=== PATIENT | female | born 1925 | race Caucasian/White ===

== ENCOUNTER 2016-05-11 13:10 | Inpatient (IN) ==
[2016-05-11] MEDS ORDERED: methylPREDNISolone 125 MG/2 ML VIAL IVP ONE (13:23)
[2016-05-11] MEDS ORDERED: Ipratropium/Albuterol Neb 3 ML IH ONE (13:23)
--- NOTE | 2016-05-11 14:10 | Emergency Department Note ---
Disposition Clinical Impression: Acute exacerbation of chronic obstructive airways disease, Elevated troponin I level Disposition: Admitted As Inpatient Condition: Fair Time of Disposition: 15:39 SOB HPI - General Chief Complaint: ED Shortness of Breath/Dyspnea Stated Complaint: productive cough Time Seen by Provider: 05/11/16 13:22 Source: patient, EMS Limitations: no limitations Nursing Notes Reviewed: Yes Vital Signs Reviewed: Yes - History of Present Illness 89-year-old female history of asthma, history of lymphoma, presents with shortness of breath and wheezing for the last week. Patient states she has been coughing productive cough. Concern for having pneumonia. Patient reports subjective fevers, denies chest pain, abdominal pain nausea vomiting diarrhea or constipation. Denies urinary symptoms. Patient states that she has had worsening cough for last few days, she has taken her inhaler at home without much improvement, she was seen by physician and was sent here today by the urgent care who was concerned she may have worsening bronchitis Pt Subjective Complaint: shortness of breath Onset (ago): day(s) (5) Context: recent illness Severity: mild Improves with: nothing Worsens with: nothing Known history of: COPD, asthma Associated symptoms: Reports: fever, cough, wheezing, sputum production. Denies : denies other symptoms Treatment prior to arrival: none, bronchodilator Cough present: Yes Cough Description: Voluntary Cough Frequency: Intermittent Sputum production: Yes Sputum Amount: Scant Sputum Color: Clear, White - Related Data Home Medications Medication Instructions Recorded Confirmed Albuterol Sulfate [Proair HFA] 1 puff IH Q4HR PRN 02/11/15 04/23/16 Ascorbic Acid [Vitamin C] 500 mg PO DAILY 02/11/15 04/23/16 Aspirin Enteric Coated [Aspirin EC] 81 mg PO DAILY 02/11/15 04/23/16 Atorvastatin [Lipitor] 10 mg PO HS 02/11/15 04/23/16 Carvedilol [Coreg] 6.25 mg PO BIDWM 02/11/15 04/23/16 Cholecalciferol (Vitamin D3) 5,000 unit PO BID 02/11/15 04/23/16 [Vitamin D] Ferrous Sulfate 325 mg PO DAILY 02/11/15 04/23/16 Fluticasone/Salmeterol [Advair 1 puff IH BID 02/11/15 04/23/16 100-50 Diskus] Furosemide [Lasix] 20 mg PO BID 10/19/15 12/29/16 Levothyroxine [Synthroid] 75 mcg PO 0630 02/11/15 04/23/16 Montelukast [Singulair] 10 mg PO DAILY 02/11/15 04/23/16 Multivit-Min/FA/Lycopen/Lutein 1 tab PO DAILY 02/11/15 04/23/16 [Centrum Silver Tablet] Omeprazole [PriLOSEC] 40 mg PO DAILY 09/30/15 04/23/16 Albuterol Neb [Proventil Neb] 2.5 mg IH QID PRN 12/26/15 04/23/16 Calcium Carbonate [Tums] 1,000 mg PO Q4HR 12/26/15 04/23/16 Lisinopril 2.5 mg PO DAILY 12/26/15 04/23/16 Polyethylene Glycol 3350 [MiraLAX] 17 gm PO DAILY PRN 12/26/15 04/23/16 Vitamin B Complex [B Complex] 1 tab PO DAILY 12/26/15 04/23/16 Previous Rx's Medication Instructions Recorded Cyanocobalamin (Vitamin B-12) 2,500 mcg PO DAILY #90 tablet 12/31/15 [Vitamin B12] Allergies Allergy/AdvReac Type Severity Reaction Status Date / Time levofloxacin [From Levaquin] Allergy Unknown Itching Verified 11/17/15 15:51 Sulfa (Sulfonamide Allergy Nausea Verified 11/17/15 15:51 Antibiotics) Review of Systems: A 14 point ROS was obtained and was negative except as per below or as documented in the HPI. Constitutional: Denies: fever, chills, weakness, weight change Eyes: Denies: eye pain, eye discharge, vision change ENT: Denies: ear pain, throat pain, hearing loss, epistaxis, congestion, Cardiovascular: Denies: chest pain, palpitations, dyspnea on exertion, edema, syncope Respiratory: cough, dyspnea, wheezes Denies:, hemoptysis, stridor Gastrointestinal: Denies: abdominal pain, nausea, vomiting. diarrhea, constipation, hematemesis, hematochezia Genitourinary: Denies: urgency, dysuria, frequency, hematuria Musculoskeletal: Denies: back pain, neck pain, arthralgia, myalgia Integumentary: Denies: rash, abrasion, lesions Neurological: Denies: headache, weakness, numbness, paresthesias, confusion, abnormal gait Psychiatric: Denies: anxiety, depression, suicidal thoughts, homicidal thoughts , Endocrine: Denies: fatigue Hematological/Lymphatic: Denies: easy bleeding, easy bruising Allergic/Immunologic: Denies: facial swelling, urticaria All systems ED: reviewed and negative except as stated. Past Medical History - Past Medical History Medical history: Reports: asthma Surgical history: Reports: breast surgery, cataract Psychiatric history: Reports: no psych history - Social History Smoking Status: Never smoker Smokeless Tobacco Status: No Alcohol use: Reports: none Drug use: Reports: none Physical Exam General: Thin cachectic female appears stated age, Head: NCAT, no lesions Eyes: sclera anicteric, conjunctiva normal, PERRLA bilaterally, EOMI Bilaterally Ears: normal inspection, external ear wnl Nose: nasal septum nondeviated, sinuses nontender Throat: good dentition, mucous membranes moist Neck: no lymphadenopathy, trachea midline no deviation, no JVD Resp: Inspiratory/ expiratory wheezes. CV: RRR, normal S1 and S2, no m/g/r, Pulses +2 Rad, +2 DP/PT Abdomen: Soft, NTND, no hepatosplenomegaly, no hernias, Negative Rovsing's sign , Negative Keyes's sign Back: normal inspection, no tenderness to palpation, Negative CVA tenderness bilaterally Neuro: A&O3, CN II-XII grossly intact bilaterally, no motor or sensory deficits bilaterally, gait normal, GCS 15 [id number] Ext: normal inspection, symmetric Active and Passive ROM UE and LE bilaterally , no pedal edema bilaterally Psych: normal mood, normal affect Skin: No rashes, skin warm, dry, intact - General Limitations: no limitations General appearance: alert, in no apparent distress Course Course Narrative: A 89-year-old female with cough congestion, consistent with possible COPD exacerbation, will try do nebs, sign Medrol reassess. - Reevaluation(s) Reevaluation #1: After reassessment, patient some improvement after 2 nebs, her troponin was elevated though I was likely ischemia due to demand ischemia, but given her age and comorbidities one significant for chest pain rule out, given 325 aspirin, admitted to medicine service Vital Signs Temperature 98.9 F 05/11/16 13:16 Pulse Rate 58 05/11/16 13:16 Respiratory Rate 18 05/11/16 13:16 Blood Pressure 160/64 05/11/16 13:16 O2 Sat by Pulse Oximetry 97 05/11/16 13:16 Temperature 98.9 F 05/11/16 13:16 Pulse Rate 70 05/11/16 15:20 Respiratory Rate 18 05/11/16 15:20 Blood Pressure 119/61 05/11/16 15:20 O2 Sat by Pulse Oximetry 97 05/11/16 15:20 Oxygen Delivery Oxygen Delivery Room Air Shortness of Breath/Dyspnea - MDM Narrative Medical decision making narrative: A 89-year-old female admitted for chest pain rule out, acute COPD exacerbation, CHF exacerbation and elevated troponin. Currently in stable condition Alysha berry. - Differential Diagnosis Likely: acute exacerbation of chronic obstructive airways disease, congestive heart failure, pneumonia - Medical Records Medical records reviewed: Yes I reviewed the patient's medical records. - Lab Data Lab results reviewed: Yes I reviewed the patient's lab results. Result diagrams: 05/11/16 14:22 05/11/16 14:22 Lab Results 05/11/16 05/11/16 05/11/16 Range/Units 14:22 14:22 14:22 WBC 5.1 (4.3-11.1) K/mcL RBC 3.40 L (3.82-4.97) M/mcL Hgb 10.8 L (11.5-15.4) g/dL Hct 34.2 L (35.3-44.9) % MCV 100.6 H (83.0-100.0) fL MCH 31.8 (28.0-33.3) pg MCHC 31.6 (31.6-35.5) g/dL RDW 14.4 (11.5-14.5) % Plt Count 135 L (140-400) K/mcL MPV 10.6 (9.4-12.4) fL Immature Gran % 0.6 (0-4) % Seg Neutrophils % 60.4 % Lymphocytes % 22.9 % Monocytes % 13.7 % Eosinophils % 1.8 % Basophils % 0.6 % Neutrophils # 3.1 (1.6-8.9) K/mcL Lymphocytes # 1.2 (0.6-4.6) K/mcL Monocytes # 0.7 (0.0-1.3) K/mcL Eosinophils # 0.1 (0.0-0.6) K/mcL Basophils # 0.0 (0.0-0.2) K/mcL Immature Plt Fraction 5.1 (1.1-6.1) % Sodium 138 (136-145) mEq/L Potassium 4.1 (3.5-4.5) mEq/L Chloride 102 (98-109) mEq/L Carbon Dioxide 26 (19-29) mEq/L BUN 20 (7-20) mg/dL Creatinine 1.03 (0.57-1.11) mg/dL Est GFR ( Amer) > 60 (> 60) Est GFR (Non-Af Amer) 50 L (> 60) BUN/Creatinine Ratio 19 (6-26) Glucose 94 (70-99) mg/dL Calculated Osmolality 288 (280-300) Lactic Acid 1.1 (0.5-2.2) mmol/L Calcium 8.9 (8.6-10.8) mg/dL Troponin I (0-0.03) ng/mL B-Natriuretic Peptide (0-100) pg/mL 05/11/16 05/11/16 Range/Units 14:22 14:22 WBC (4.3-11.1) K/mcL RBC (3.82-4.97) M/mcL Hgb (11.5-15.4) g/dL Hct (35.3-44.9) % MCV (83.0-100.0) fL MCH (28.0-33.3) pg MCHC (31.6-35.5) g/dL RDW (11.5-14.5) % Plt Count (140-400) K/mcL MPV (9.4-12.4) fL Immature Gran % (0-4) % Seg Neutrophils % % Lymphocytes % % Monocytes % % Eosinophils % % Basophils % % Neutrophils # (1.6-8.9) K/mcL Lymphocytes # (0.6-4.6) K/mcL Monocytes # (0.0-1.3) K/mcL Eosinophils # (0.0-0.6) K/mcL Basophils # (0.0-0.2) K/mcL Immature Plt Fraction (1.1-6.1) % Sodium (136-145) mEq/L Potassium (3.5-4.5) mEq/L Chloride (98-109) mEq/L Carbon Dioxide (19-29) mEq/L BUN (7-20) mg/dL Creatinine (0.57-1.11) mg/dL Est GFR ( Amer) (> 60) Est GFR (Non-Af Amer) (> 60) BUN/Creatinine Ratio (6-26) Glucose (70-99) mg/dL Calculated Osmolality (280-300) Lactic Acid (0.5-2.2) mmol/L Calcium (8.6-10.8) mg/dL Troponin I 0.04 H* (0-0.03) ng/mL B-Natriuretic Peptide 748 H (0-100) pg/mL - Radiology Data Radiology results reviewed: Yes I reviewed the patient's radiology results. Chest X-Ray 05/11/16 13:24 IMPRESSION: No acute cardiopulmonary disease. Cardiomegaly without failure. D/ / Armand Keller MD / Armand Keller MD Interpreting Provider: Armand Keller MD - EKG Data EKG attestation: Yes I reviewed and interpreted this EKG. EKG shows normal: Reports: sinus rhythm (63 bpm TX 193 QRS 80 QTc 4:[address] segment elevations or depressions, moderate LVH) Interpretation: Reports: no acute changes - Core Measures AMI Core Measures Followed: No Attestation Statement - Attestation Attestation: Patient was seen with resident physician. I reviewed the history, physical, assessment and plan, and agree with the findings. I also personally evaluated this patient and had [id number] time with this patient. 89-year-old female presents to the emergency department with cough and shortness of breath for last several days. Says she has been taking more of her home albuterol but has not gotten any better. She is also concerned as her cough is gotten progressively worse. Denies nausea vomiting or diarrhea. On examination ENT is unremarkable. Patient does have a port on her chest wall. Chest wall itself is nontender. Heart is regular rhythm. Lungs show diffuse wheezing and rales in the upper and lower lung lam. Abdomen is soft and nontender. Extremities are unremarkable. We will do a workup for pneumonia and other causes of her symptoms. We will also treat with breathing treatments and reevaluate once done. Workup discovered several issues including CHF, continue COPD, and elevated troponin. This combination of factors I am concerned that the patient may continue to worsen if she is not aggressively treated. She had some fluid management as well as additional respiratory support and repeat troponins. We will admit to the hospitalist service for further evaluation and treatment. I Agree with resident physician assessment plan.
[2016-05-11 14:37] LABS: Basophils % 0.6 %; Eosinophils # 0.1 K/mcL (0.0-0.6); Eosinophils % 1.8 %; Hematocrit 34.2 % (35.3-44.9); Hemoglobin 10.8 g/dL (11.5-15.4); Immature Granulocytes % 0.6 % (0-4); Immature Platelets 5.1 % (1.1-6.1); Lymphocytes # 1.2 K/mcL (0.6-4.6); Lymphocytes % 22.9 %; Mean Corpuscular HGB Conc 31.6 g/dL (31.6-35.5); Mean Corpuscular Hemoglobin 31.8 pg (28.0-33.3); Mean Corpuscular Volume 100.6 fL (83.0-100.0); Mean Platelet Volume 10.6 fL (9.4-12.4); Monocytes # 0.7 K/mcL (0.0-1.3); Monocytes % 13.7 %; Neutrophils # 3.1 K/mcL (1.6-8.9); Platelet Count 135 K/mcL (140-400); Red Cell Distribution Width 14.4 % (11.5-14.5); Segmented Neutrophils % 60.4 %
[2016-05-11 14:54] LABS: BUN/Creatinine Ratio 19 (6-26); Blood Urea Nitrogen 20 mg/dL (7-20); Calcium 8.9 mg/dL (8.6-10.8); Carbon Dioxide 26 mEq/L (19-29); Chloride 102 mEq/L (98-109); Glucose 94 mg/dL (70-99); Osmolality,Calculated 288 (280-300); Potassium 4.1 mEq/L (3.5-4.5); Sodium 138 mEq/L (136-145); eGFR For African Americans > 60 (> 60); eGFR For Non-African Americans 50 (> 60)
[2016-05-11] MEDS ORDERED: Aspirin 325 MG TABLET PO ONE (15:29)
[2016-05-11] MEDS ORDERED: Naloxone 0.4 MG/ML INJ IVP PRN (17:41)
[2016-05-11] MEDS ORDERED: MOM Conc 10 ML UD.LIQ PO PRN (17:41)
[2016-05-11] MEDS ORDERED: Acetaminophen 325 MG TABLET PO PRN (17:41)
[2016-05-11] MEDS ORDERED: Ondansetron 4 MG/2 ML VIAL IVP PRN (17:41)
[2016-05-11] MEDS ORDERED: Ibuprofen 400 MG TABLET PO PRN (17:41)
[2016-05-11] MEDS ORDERED: *HR* HYDROcodone/Acet 5/325 mg TABLET PO PRN (17:41)
[2016-05-11] MEDS ORDERED: Albuterol 2.5 MG/3 ML NEBULIZER IH PRN (17:57)
--- NOTE | 2016-05-11 18:09 | Internal Med History&Physical ---
<Frantz Encarnacion T - Last Filed: 05/11/16 19:47> Date of Encounter: 05/11/16 Time of Encounter: 19:47 Internal Medicine - H&P: HPI History of present illness: Ms. Bullock is a 89 year old female Internal Medicine - H&P: Meds Albuterol Sulfate [Proair HFA] 1 puff IH Q4HR PRN 02/11/15 [History] Ascorbic Acid [Vitamin C] 500 mg PO DAILY 02/11/15 [History] Aspirin Enteric Coated [Aspirin EC] 81 mg PO DAILY 02/11/15 [History] Atorvastatin [Lipitor] 10 mg PO HS 02/11/15 [History] Carvedilol [Coreg] 6.25 mg PO BID 02/11/15 [History] Cholecalciferol (Vitamin D3) [Vitamin D] 5,000 unit PO BID 02/11/15 [History] Ferrous Sulfate 325 mg PO DAILY 02/11/15 [History] Fluticasone/Salmeterol [Advair 100-50 Diskus] 1 puff IH BID 02/11/15 [History] Furosemide [Lasix] 20 mg PO QPM 02/11/15 [History] Levothyroxine [Synthroid] 75 mcg PO DAILY 02/11/15 [History] Montelukast [Singulair] 10 mg PO DAILY 02/11/15 [History] Multivit-Min/FA/Lycopen/Lutein [Centrum Silver Tablet] 1 tab PO DAILY 02/11/15 [ History] Omeprazole [PriLOSEC] 40 mg PO DAILY 09/30/15 [History] Albuterol Neb [Proventil Neb] 2.5 mg IH QID PRN 12/26/15 [History] Calcium Carbonate [Tums] 1,000 mg PO Q4HR 12/26/15 [History] Lisinopril 2.5 mg PO QPM 12/26/15 [History] Polyethylene Glycol 3350 [MiraLAX] 17 gm PO DAILY PRN 12/26/15 [History] Vitamin B Complex [B Complex] 1 tab PO DAILY 12/26/15 [History] Cyanocobalamin (Vitamin B-12) [Vitamin B12] 2,500 mcg PO DAILY #90 tablet [Rx] Furosemide [Lasix] 40 mg PO QAM 05/11/16 [History] Allergies levofloxacin [From Levaquin] Allergy (Unknown, Verified 11/17/15 15:51) Itching Sulfa (Sulfonamide Antibiotics) Adverse Reaction (Verified 05/11/16 16:10) Nausea All Systems PM: A 10-system review of systems was performed and is negative for pertinent findings except as documented above in the HPI. - Constitutional Vitals: Temp Pulse Resp BP Pulse Ox 98.2 F 77 14 121/73 95 05/11/16 16:57 05/11/16 16:57 05/11/16 16:57 05/11/16 16:57 05/11/16 16:57 Internal Med - H&P Results - Labs CBC & Chem 7: 05/11/16 14:22 05/11/16 14:22 - Attending Attestation 89 Y/O F with PMH of CHFrEF, , hypothyroidism, lymphoma, asthma, HTN Presents with a week history of flu-like symptoms including sore throat, runny thomas, post-nasal drip. Today she developed shortness of breath overnight, with wheezing, she also reports dry cough, no fever or chills. She has had her flu shot for this season. No worsening pedal edema, no orthopnea. NO chest pain Physical Exam revealed cachectic elderly female, chronically ill-looking, laying flat, speaking full sentences, in mild distress, no pharyngeal exudates, right maxillary tenderness. Chest with inspiratory rhonchi and diffuse wheezing bilaterally. Heart sounds S1, S2 uriel, no m/g/r. Abdomen is benign. Bilateral piting pedal edema 1+. labs remarkable for chronic stable anemia and thrombocytopenia, no leukocytosis , BNP 748, CXR with cardiomegaly, no infiltrates, ECHO from 10/2015 with EF 35%, Severely dilated LA, Pulm HTN, Multiple wall motions hypokinesis. troponin 0.04 (previous 0.13) Assessment/Plan: Asthma exacerbation, duonebs RTC, albuterol q2h prn, Mag 2g, racemic epinephrine stat, prednsione po. Augmentin for possible sinusitis, CHF in no exacerbation, resume home meds Patient is full code Plan of care discussed with patient, verbalizes understanding. <Milana Gardner - Last Filed: 05/12/16 12:37> Date of Encounter: 05/12/16 Assessment and Plan (1) Acute exacerbation of chronic obstructive airways disease Current visit: Yes Status: Acute Pt reports recent non-productive cough and SOB x 2 days. Sore throat x 1 week with nasal congestion. Pt states that she has been wheezing and that her cough feels "loose". Denies other recent illness, triggers or fever. Xray shows no active disease, however, pt has expiratory wheezing in all post lobes and upper ant chest, with ronchi post in all lam. White count 5.1, Pulse 70, resps 18 and unlabored,BP 112/53, and pt is 97% on room air. Continuous pulse oximetry Continuous cardiac monitoring Bronchodilators nebulizer and MDI Monitor labs Prednisone 40mg po daily (2) Elevated troponin I level Current visit: Yes Status: Acute Troponin slightly elevated at 0.04ng/mL. Pt denies cp. Most likely elevated due to demand. Continuous cardiac monitoring Continuous pulse oximetry Repeat troponins (3) CHF (congestive heart failure) Current visit: Yes Status: Chronic Pt with history of systolic CHF. October 2015 Echo EF 35% and severly dilated L atrium. Pt in no distress, speaks easily, resps easy. Pt denies worsening pedal edema. Continuous cardiac monitoring Continuous pulse oximetry Continue lasix Monitor labs Qualifiers: Congestive heart failure type: systolic Congestive heart failure chronicity : chronic Qualified Code(s): I50.22 - Chronic systolic (congestive) heart failure Internal Medicine - H&P: HPI Chief complaint: SOB, cough Admitted From: Home Plans for Post Hospital Care: Home History of present illness: Ms. Bullock is a 89 year old female with a history of asthma, lymphoma, CHF, Pernicious anemia, and breast cancer, who reports non-productive loose cough, SOB, and wheezing since yesterday. Pt denies recent fever, but c/o sore throat and nasal congestion for 1 week. Xray shows no infiltrates or active disease. Pt denies peripheral edema, that is new for her. Has history of RLE edema since R knee lymphoma in the last 3 years, but has not become worse. BNP 748 pg/mL. Past Med Surg Social Fam HX - Past Medical History Medical history: asthma Psychiatric history: no psych history - Past Surgical History Surgical History: breast surgery, cataract - Social History Smoking Status: Never smoker Smokeless Tobacco Status: No Alcohol use: none Drug use: none - Family History Brother Adopted: [place]: nona Age: 78 Hx Family Cardiac Disorders: Yes (HTN) All Systems PM: A 10-system review of systems was performed and is negative for pertinent findings except as documented above in the HPI. - Constitutional Constitutional: no chills, no fever(s), no falls - Cardiovascular Cardiovascular ROS IM: no chest pain, no dyspnea, no palpitations - Respiratory Respiratory: cough, wheezing, no hemoptysis, no pain on inspiration, no excessive phlegm production, no change in phlegm color Additional comments: pt c/o SOB without exertion - Gastrointestinal Gastrointestinal: no constipation, no diarrhea, no nausea, no vomiting - Musculoskeletal Musculoskeletal ROS IM: no muscle weakness - Constitutional Vitals: Temp Pulse Resp BP Pulse Ox 98.2 F 77 14 121/73 95 05/11/16 16:57 05/11/16 16:57 05/11/16 16:57 05/11/16 16:57 05/11/16 16:57 General appearance: Present: cachectic, cooperative, A&O X 3, pleasant, no acute distress - Eye Eye exam: Present: normal appearance, PERRL, conjuntiva pink - ENT ENT exam: Present: mucous membranes moist, normal external ear exam, normal oropharynx - Neck Neck exam general surgery: Absent: lymphadenopathy, tenderness - Respiratory Respiratory exam: Present: rhonchi, wheezes. Absent: accessory muscle use, chest wall tenderness, decreased breath sounds, respiratory distress, tachypnea - Cardiovascular Cardiovascular exam: Present: RRR, +S1, +S2. Absent: systolic murmur - GI/Abdominal GI/Abdominal exam: Present: normal bowel sounds, soft. Absent: tenderness - Extremities Exam Extremities exam: Present: full ROM, normal capillary refill, warm, radial pulses palpable and symetrical. Absent: cyanotic, pedal edema - Neurological Exam Neurological exam: Present: alert, oriented X3, strengths equal and symetr throughout Internal Med - H&P Results - Labs CBC & Chem 7: 05/12/16 03:49 05/12/16 03:49 - EKG Data -: EKG Interpreted by Myself EKG shows normal: sinus rhythm - Impressions EKG Sinus rhythm with occasional supraventricular premature complexes Rate 63 CT interval 193ms QRS 80ms
[2016-05-11] MEDS ORDERED: Magnesium Sulfate 2 GM in D5% in Water 100 ML IVPB ONE (19:11)
[2016-05-11] MEDS ORDERED: Racepinephrine Neb 0.5 ML VIAL IH ONE (19:11)
[2016-05-11] MEDS: Amoxicillin/Clavulanate 500 MG TABLET PO SCH (20:41)
[2016-05-11] MEDS: Furosemide 20 MG TABLET PO SCH (20:41)
[2016-05-11] MEDS: Ipratropium/Albuterol Neb 3 ML IH SCH ×2 (21:36→23:23)
[2016-05-11] MEDS: Albuterol 2.5 MG/3 ML NEBULIZER IH SCH (21:38)
[2016-05-11] MEDS: Budesonide/Formoterol 80/4.5 MDI IH SCH (23:23)
[2016-05-12 04:43] LABS: Hematocrit 30.7 % (35.3-44.9); Hemoglobin 9.9 g/dL (11.5-15.4); Immature Granulocytes % 0.4 % (0-4); Lymphocytes % 11.7 %; Mean Corpuscular HGB Conc 32.2 g/dL (31.6-35.5); Mean Corpuscular Hemoglobin 31.9 pg (28.0-33.3); Mean Platelet Volume 11.2 fL (9.4-12.4); Monocytes % 1.8 %; Platelet Count 127 K/mcL (140-400); Red Cell Distribution Width 14.1 % (11.5-14.5); Segmented Neutrophils % 86.1 %
[2016-05-12 04:44] LABS: Lymphocytes # 0.3 K/mcL (0.6-4.6); Monocytes # 0.1 K/mcL (0.0-1.3); Neutrophils # 2.4 K/mcL (1.6-8.9)
[2016-05-12 05:01] LABS: BUN/Creatinine Ratio 28 (6-26); Blood Urea Nitrogen 28 mg/dL (7-20); Calcium 8.6 mg/dL (8.6-10.8); Carbon Dioxide 25 mEq/L (19-29); Chloride 105 mEq/L (98-109); Glucose 175 mg/dL (70-99); Osmolality,Calculated 298 (280-300); Sodium 139 mEq/L (136-145); eGFR For African Americans > 60 (> 60); eGFR For Non-African Americans 53 (> 60)
[2016-05-12] MEDS: Ipratropium/Albuterol Neb 3 ML IH SCH ×4 (05:27→22:23)
[2016-05-12] MEDS: Albuterol 2.5 MG/3 ML NEBULIZER IH SCH ×4 (05:27→16:25)
[2016-05-12] MEDS: Multivit/Ca/Min/Fe/FA 1 TAB TABLET PO SCH (09:10)
[2016-05-12] MEDS: Cyanocobalamin (B-12) 1,000 MCG TABLET PO SCH (09:10)
[2016-05-12] MEDS: Cholecalciferol (D-3) 1,000 UNIT TABLET PO SCH (09:10)
[2016-05-12] MEDS: Vitamin B Complex/Vit C/Vit E 1 EACH TABLET PO SCH (09:10)
[2016-05-12] MEDS: Amoxicillin/Clavulanate 500 MG TABLET PO SCH ×2 (09:11→17:22)
[2016-05-12] MEDS: Ascorbic Acid 500 MG TABLET PO SCH (09:11)
[2016-05-12] MEDS: Furosemide 40 MG TABLET PO SCH (09:11)
[2016-05-12] MEDS: predniSONE 20 MG TABLET PO SCH (09:11)
[2016-05-12] MEDS: Aspirin Enteric Coated 81 MG Tablet PO SCH (09:12)
--- NOTE | 2016-05-12 10:38 | Internal Med Progress Note ---
Date of Encounter: 05/12/16 Time of Encounter: 10:36 - Assessment and plan (1) Acute asthma exacerbation Current Visit: Yes Status: Acute Assessment and plan: Improving slowly. Has been started on oral Augmentin and prednisone, will continue the same due to good response. Continue bronchodilators along with when necessary supplemental oxygen. Supportive care with when necessary antitussives and Tylenol. Influenza and pneumococcal immunization prior to discharge. Chest x-ray shows no evidence of pneumonia. Blood cultures remain negative so far. Patient appears to be cachectic with generalized weakness and lives alone. Physical and occupational therapy evaluation for possible home health services/ rehabilitation placement. Qualifiers: Asthma severity: mild intermittent Qualified Code(s): J45.21 - Mild intermittent asthma with (acute) exacerbation (2) Hypothyroidism Current Visit: Yes Status: Chronic Assessment and plan: Resume levothyroxine. Qualifiers: Hypothyroidism type: acquired Qualified Code(s): E03.9 - Hypothyroidism, unspecified (3) Elevated troponin I level Current Visit: Yes Status: Acute Assessment and plan: No EKG changes. Likely related to demand ischemia, troponin trended down to normal. No further cardiac testing at this time. (4) Large B-cell lymphoma Current Visit: No Status: Resolved Assessment and plan: History of right knee B-cell lymphoma. Noted to be following with oncology as outpatient. Currently in remission per patient. 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 Continue aspirin, statin, TELMA inhibitor, beta sav and diuretics. Not noted to be in acute exacerbation. (7) Chronic kidney disease Current Visit: No Status: Chronic Qualifiers: Chronic kidney disease stage: stage 3 (moderate) Qualified Code(s): N18.3 - Chronic kidney disease, stage 3 (moderate) - Subjective Interval history: Feels better. Improving cough and shortness of breath and wheezing. Reports epigastric discomfort, belching and upper abdominal pain that is chronic for the patient. No fever or chills. - Constitutional Vitals: Temp Pulse Resp BP Pulse Ox 97.7 F 63 15 96/58 93 L 05/12/16 07:31 05/12/16 07:31 05/12/16 07:31 05/12/16 07:31 05/12/16 07:31 General appearance: Present: cachectic, A&O X 3, answers questions appropriately - Head Head exam: Present: atraumatic, normocephalic - Neck Neck exam general surgery: Present: supple, trachea midline. Absent: lymphadenopathy - Respiratory Respiratory exam: Present: rhonchi (Scattered posterior rhonchi.). Absent: accessory muscle use, rales, wheezes Additional comments: Left upper chest wall chemotherapy port noted. - Cardiovascular Cardiovascular exam: Present: RRR, +S1, +S2. Absent: diastolic murmur, gallop, rubs, systolic murmur - GI/Abdominal GI/Abdominal exam: Present: normal bowel sounds, soft (Mild tenderness in upper abdomen/epigastrium), no peritoneal signs. Absent: distended, tenderness - Extremities Exam Extremities exam: Present: joint swelling (Right knee chronic swelling), pedal edema (Nonpitting), warm, radial pulses palpable and symetrical. Absent: calf tenderness, cyanotic - Neurological Exam Neurological exam: Present: CN II-XII intact, oriented X3, no focal deficits. Absent: pronater drift, facial droop, speech deficit - Skin Skin exam: Present: dry, intact Internal Medicine: Result - Labs CBC & Chem 7: 05/12/16 03:49 05/12/16 03:49 Labs: Short CBC 05/12/16 Range/Units 03:49 WBC 2.8 L (4.3-11.1) K/mcL Hgb 9.9 L (11.5-15.4) g/dL Hct 30.7 L (35.3-44.9) % Plt Count 127 L (140-400) K/mcL Neutrophils # 2.4 (1.6-8.9) K/mcL BMP 05/12/16 03:49 Sodium 139 Potassium 4.0 Chloride 105 Carbon Dioxide 25 BUN 28 H Creatinine 0.99 Glucose 175 H Calcium 8.6 Cardiac Enzymes 05/11/16 05/12/16 Range/Units 20:52 03:49 Troponin I 0.03 0.03 (0-0.03) ng/mL Consult Discharge Plan - Plan Referrals: Rogelio Dave MD [Primary Care Provider] -
[2016-05-12] MEDS: Budesonide/Formoterol 80/4.5 MDI IH SCH ×2 (10:44→22:23)
[2016-05-12] MEDS ORDERED: Albuterol 2.5 MG/3 ML NEBULIZER IH PRN (15:06)
[2016-05-12] MEDS: Furosemide 20 MG TABLET PO SCH (17:22)
--- NOTE | 2016-05-12 18:33 | Electrocardiograph Report ---
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
[2016-05-13] MEDS: Ipratropium/Albuterol Neb 3 ML IH SCH ×4 (04:38→22:31)
[2016-05-13] MEDS: *HR* Enoxaparin 30 MG/0.3 ML SYRINGE SQ SCH (06:07)
[2016-05-13 06:15] LABS: Basophils % 0.2 %; Eosinophils % 0.2 %; Hematocrit 28.7 % (35.3-44.9); Hemoglobin 9.2 g/dL (11.5-15.4); Immature Granulocytes % 0.5 % (0-4); Lymphocytes # 0.7 K/mcL (0.6-4.6); Lymphocytes % 12.8 %; Mean Corpuscular HGB Conc 32.1 g/dL (31.6-35.5); Mean Corpuscular Hemoglobin 31.6 pg (28.0-33.3); Mean Corpuscular Volume 98.6 fL (83.0-100.0); Monocytes # 0.6 K/mcL (0.0-1.3); Monocytes % 9.6 %; Neutrophils # 4.4 K/mcL (1.6-8.9); Platelet Count 120 K/mcL (140-400); Red Blood Count 2.91 M/mcL (3.82-4.97); Red Cell Distribution Width 14.3 % (11.5-14.5); Segmented Neutrophils % 76.7 %
[2016-05-13 06:31] LABS: BUN/Creatinine Ratio 34 (6-26); Blood Urea Nitrogen 32 mg/dL (7-20); Calcium 8.1 mg/dL (8.6-10.8); Carbon Dioxide 29 mEq/L (19-29); Chloride 105 mEq/L (98-109); Glucose 97 mg/dL (70-99); Osmolality,Calculated 299 (280-300); Potassium 3.9 mEq/L (3.5-4.5); Sodium 141 mEq/L (136-145); eGFR For African Americans > 60 (> 60); eGFR For Non-African Americans 55 (> 60)
[2016-05-13] MEDS: Aspirin Enteric Coated 81 MG Tablet PO SCH (09:00)
[2016-05-13] MEDS: Cholecalciferol (D-3) 1,000 UNIT TABLET PO SCH (09:00)
[2016-05-13] MEDS: predniSONE 20 MG TABLET PO SCH (09:00)
[2016-05-13] MEDS: Furosemide 40 MG TABLET PO SCH (09:00)
[2016-05-13] MEDS: Multivit/Ca/Min/Fe/FA 1 TAB TABLET PO SCH (09:00)
[2016-05-13] MEDS: Amoxicillin/Clavulanate 500 MG TABLET PO SCH ×2 (09:00→17:39)
[2016-05-13] MEDS: Vitamin B Complex/Vit C/Vit E 1 EACH TABLET PO SCH (09:00)
[2016-05-13] MEDS: Cyanocobalamin (B-12) 1,000 MCG TABLET PO SCH (09:00)
[2016-05-13] MEDS: Ascorbic Acid 500 MG TABLET PO SCH (09:00)
--- NOTE | 2016-05-13 09:16 | Internal Med Progress Note ---
Date of Encounter: 05/13/16 Time of Encounter: 09:12 - Assessment and plan (1) Acute asthma exacerbation Current Visit: Yes Status: Acute Assessment and plan: Noted to be wheezing and coughing; will change steroids to IV Solumedrol and continue empiric antibiotics- Augmentin; continue bronchodilators, not noted to be on supplemental O2; continue to monitor closely; OT evaluation noted, recommend [facility]; Qualifiers: Asthma severity: mild intermittent Qualified Code(s): J45.21 - Mild intermittent asthma with (acute) exacerbation (2) Hypothyroidism Current Visit: Yes Status: Chronic Assessment and plan: Resume levothyroxine. 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 Continue aspirin, statin, TELMA inhibitor, beta sav and diuretics. Not noted to be in acute exacerbation. (6) Chronic kidney disease Current Visit: No Status: Chronic Qualifiers: Chronic kidney disease stage: stage 3 (moderate) Qualified Code(s): N18.3 - Chronic kidney disease, stage 3 (moderate) - Subjective Interval history: Noted to be having dry cough and occasional shortness of breath along with wheezing. No reported chest pain, fever, chills. Improved nausea and vomiting. - Constitutional Vitals: Temp Pulse Resp BP Pulse Ox 97.7 F 82 14 102/66 94 L 05/13/16 07:16 05/13/16 07:16 05/13/16 07:16 05/13/16 07:16 05/13/16 07:16 General appearance: Present: cachectic, A&O X 3, answers questions appropriately - Head Head exam: Present: atraumatic, normocephalic - Neck Neck exam general surgery: Present: supple, trachea midline. Absent: lymphadenopathy - Respiratory Respiratory exam: Present: rhonchi (Bilateral diffuse rhonchi with intermittent wheezing). Absent: accessory muscle use, rales, wheezes - Cardiovascular Cardiovascular exam: Present: irregular rhythm, +S1, +S2. Absent: diastolic murmur, gallop, rubs, systolic murmur - GI/Abdominal GI/Abdominal exam: Present: normal bowel sounds, soft, no peritoneal signs. Absent: distended, tenderness - Extremities Exam Extremities exam: Present: warm, radial pulses palpable and symetrical. Absent : calf tenderness, cyanotic, pedal edema - Neurological Exam Neurological exam: Present: CN II-XII intact, oriented X3, no focal deficits. Absent: pronater drift, facial droop, speech deficit - Skin Skin exam: Present: dry, intact Internal Medicine: Result - Labs CBC & Chem 7: 05/13/16 05:46 05/13/16 05:46 Labs: Short CBC 05/13/16 Range/Units 05:46 WBC 5.7 D (4.3-11.1) K/mcL Hgb 9.2 L (11.5-15.4) g/dL Hct 28.7 L (35.3-44.9) % Plt Count 120 L (140-400) K/mcL Neutrophils # 4.4 (1.6-8.9) K/mcL BMP 05/13/16 05:46 Sodium 141 Potassium 3.9 Chloride 105 Carbon Dioxide 29 BUN 32 H Creatinine 0.95 Glucose 97 Calcium 8.1 L Consult Discharge Plan - Plan Referrals: Rogelio Dave MD [Primary Care Provider] - 05/21/16 2:00 pm (Please follow up as schedule...)
[2016-05-13] MEDS: Budesonide/Formoterol 80/4.5 MDI IH SCH ×2 (10:15→22:31)
[2016-05-13] MEDS: MethylPREDNISolone 40 MG/ML VIAL IVP SCH ×2 (12:25→17:39)
[2016-05-13] MEDS: Furosemide 20 MG TABLET PO SCH (17:39)
[2016-05-14] MEDS: MethylPREDNISolone 40 MG/ML VIAL IVP SCH ×2 (00:13→09:54)
[2016-05-14] MEDS: Ipratropium/Albuterol Neb 3 ML IH SCH ×2 (03:19→11:22)
[2016-05-14] MEDS: *HR* Enoxaparin 30 MG/0.3 ML SYRINGE SQ SCH (06:21)
[2016-05-14 07:07] VITALS: BP 133/65
--- NOTE | 2016-05-14 09:05 | Discharge Summary ---
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 Priority: Secondary Status: Chronic (6) Chronic kidney disease Priority: Secondary Status: Chronic Qualifiers: Chronic kidney disease stage: stage 3 (moderate) Qualified Code(s): N18.3 - Chronic kidney disease, stage 3 (moderate) (7) Lymphoma Priority: Secondary Status: Chronic Qualifiers: Lymphoma type: non-Hodgkin Non-Hodgkin lymphoma type: B-cell B-cell lymphoma type: diffuse large B-cell Lymphoma site: lower extremity Qualified Code(s): 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, 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 - Discharge Medications Prescriptions: Amoxicillin/Clavulanate [Augmentin] 500 mg PO BIDWM #4 tablet Benzonatate [Tessalon] 100 mg PO TID PRN #30 capsule PRN Reason: Cough PredniSONE 50 mg PO DAILY 15 Days Home Medications: Albuterol Sulfate [Albuterol Inhaler] 1 puff IH Q4HR PRN 02/11/15 [History] Ascorbic Acid [Vitamin C] 500 mg PO DAILY 02/11/15 [History] Aspirin Enteric Coated [Aspirin EC] 81 mg PO DAILY 02/11/15 [History] Atorvastatin [Lipitor] 10 mg PO HS 02/11/15 [History] Carvedilol [Coreg] 6.25 mg PO BID 02/11/15 [History] Cholecalciferol (Vitamin D3) [Vitamin D3] 5,000 unit PO BID 02/11/15 [History] Ferrous Sulfate 325 mg PO DAILY 02/11/15 [History] Fluticasone/Salmeterol [Advair 100-50 Diskus] 1 puff IH BID 02/11/15 [History] Furosemide [Lasix] 20 mg PO QPM 02/11/15 [History] Levothyroxine [Synthroid] 75 mcg PO DAILY 02/11/15 [History] Montelukast [Singulair] 10 mg PO DAILY 02/11/15 [History] Multivit-Min/FA/Lycopen/Lutein [Centrum Silver Tablet] 1 tab PO DAILY 02/11/15 [ History] Omeprazole [PriLOSEC] 40 mg PO DAILY 09/30/15 [History] Albuterol Neb [Proventil Neb] 2.5 mg IH QID PRN 12/26/15 [History] Calcium Carbonate [Tums] 1,000 mg PO Q4HR 12/26/15 [History] Lisinopril 2.5 mg PO QPM 12/26/15 [History] Polyethylene Glycol 3350 [MiraLAX] 17 gm PO DAILY PRN 12/26/15 [History] Vitamin B Complex [B Complex] 1 tab PO DAILY 12/26/15 [History] Cyanocobalamin (Vitamin B-12) [Vitamin B12] 2,500 mcg PO DAILY #90 tablet [Rx] Furosemide [Lasix] 40 mg PO QAM 05/11/16 [History] Amoxicillin/Clavulanate [Augmentin] 500 mg PO BIDWM #4 tablet 05/14/16 [Rx] Benzonatate [Tessalon] 100 mg PO TID PRN #30 capsule 05/14/16 [Rx] PredniSONE 50 mg PO DAILY 15 Days 05/14/16 [Rx] Allergies/Adverse Reactions: Allergies levofloxacin [From Levaquin] Allergy (Unknown, Verified 11/17/15 15:51) Itching Sulfa (Sulfonamide Antibiotics) Adverse Reaction (Verified 05/11/16 16:10) Nausea Date of admission: 05/11/16 15:36 Primary care physician: Rogelio Dave MD Consults: 05/11/16 17:57 Consult to Nurse Navigator [CONS] Routine Comment: 05/12/16 10:35 Consult to Occupational Therapy [CONS] Routine Comment: Evaluate, develop and implement POC Consult to Physical Therapy [CONS] Routine Comment: Evaluate, develop and implement POC 05/13/16 17:11 Consult to Light Truck Driver [CONS] Routine Reason for SW Consult: has HH, but needs PT/OT with it. Discharging clinician: Liss Hdz Anticipated date of discharge: 05/14/16 - Patient Status Disposition: Home Health Service Condition: Good Functional capacity at discharge: independent ambulation Overall status at discharge: patient is progressing back to baseline - Discharge Instructions Instructions: Asthma (DC), Chronic Obstructive Pulmonary Disease (DC) Follow Up With: Rogelio Dave MD [Primary Care Provider] - 05/21/16 2:00 pm (Please follow up as schedule...) - Diet and Activity Activity: resume usual activities as tolerated Diet: low fat, low cholesterol, low salt diet Hospital course: Ms. Bullock is a 89 year old female with history of asthma, malnutrition and cachexia who was admitted with worsening cough and shortness of breath. She was started on empiric oral antibiotics and steroids along with bronchodilators and supplemental oxygen as needed. She initially improved on this regimen but continued to have persistent rhonchi and wheezing and her steroids were switched to IV Solu-Medrol. She responded well to this and is breathing much better today, does have persistent cough but no active wheezing. Patient is currently medically stable for discharge on oral steroid taper and antibiotics. PT evaluation has been done and recommended home health services, and referral for the same has been made. - Time Spent with Patient Total time spent providing and/or coordinating discharge services: Greater than 30 minutes (45 min) - Constitutional Vitals: Temp Pulse Resp BP Pulse Ox 97.9 F 74 16 133/65 92 L 05/14/16 07:06 05/14/16 07:06 05/14/16 07:06 05/14/16 07:06 05/14/16 07:06 General appearance: Present: cachectic, A&O X 3, answers questions appropriately - Respiratory Respiratory exam: Present: CTAB (occasional scattered rhonchi posterior bases). Absent: accessory muscle use, rales, rhonchi, wheezes - Cardiovascular Cardiovascular exam: Present: RRR, +S1, +S2. Absent: diastolic murmur, gallop, rubs, systolic murmur
--- NOTE | 2016-05-14 09:07 | Physician Discharge Referral ---
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 For more information, call the [place] Tobacco Quit Line at 2-329-CIKCNOW. - Diet/Nutrition Diet/Nutrition Orders: Cardiac - Services Needed Following services are medically necessary services: Nursing, Physical Therapy, Occupational Therapy - Transfer Medications Prescriptions: Amoxicillin/Clavulanate [Augmentin] 500 mg PO BIDWM #4 tablet Benzonatate [Tessalon] 100 mg PO TID PRN #30 capsule PRN Reason: Cough PredniSONE 50 mg PO DAILY 15 Days Home Medications: Albuterol Sulfate [Albuterol Inhaler] 1 puff IH Q4HR PRN 02/11/15 [History] Ascorbic Acid [Vitamin C] 500 mg PO DAILY 02/11/15 [History] Aspirin Enteric Coated [Aspirin EC] 81 mg PO DAILY 02/11/15 [History] Atorvastatin [Lipitor] 10 mg PO HS 02/11/15 [History] Carvedilol [Coreg] 6.25 mg PO BID 02/11/15 [History] Cholecalciferol (Vitamin D3) [Vitamin D3] 5,000 unit PO BID 02/11/15 [History] Ferrous Sulfate 325 mg PO DAILY 02/11/15 [History] Fluticasone/Salmeterol [Advair 100-50 Diskus] 1 puff IH BID 02/11/15 [History] Furosemide [Lasix] 20 mg PO QPM 02/11/15 [History] Levothyroxine [Synthroid] 75 mcg PO DAILY 02/11/15 [History] Montelukast [Singulair] 10 mg PO DAILY 02/11/15 [History] Multivit-Min/FA/Lycopen/Lutein [Centrum Silver Tablet] 1 tab PO DAILY 02/11/15 [ History] Omeprazole [PriLOSEC] 40 mg PO DAILY 09/30/15 [History] Albuterol Neb [Proventil Neb] 2.5 mg IH QID PRN 12/26/15 [History] Calcium Carbonate [Tums] 1,000 mg PO Q4HR 12/26/15 [History] Lisinopril 2.5 mg PO QPM 12/26/15 [History] Polyethylene Glycol 3350 [MiraLAX] 17 gm PO DAILY PRN 12/26/15 [History] Vitamin B Complex [B Complex] 1 tab PO DAILY 12/26/15 [History] Cyanocobalamin (Vitamin B-12) [Vitamin B12] 2,500 mcg PO DAILY #90 tablet [Rx] Furosemide [Lasix] 40 mg PO QAM 05/11/16 [History] Amoxicillin/Clavulanate [Augmentin] 500 mg PO BIDWM #4 tablet 05/14/16 [Rx] Benzonatate [Tessalon] 100 mg PO TID PRN #30 capsule 05/14/16 [Rx] PredniSONE 50 mg PO DAILY 15 Days 05/14/16 [Rx] Allergies/Adverse Reactions: Allergies levofloxacin [From Levaquin] Allergy (Unknown, Verified 11/17/15 15:51) Itching Sulfa (Sulfonamide Antibiotics) Adverse Reaction (Verified 05/11/16 16:10) Nausea Certification: Further, I certify that my clinical findings support that this patient is homebound (i.e. absences from home require considerable and taxing effort and are for medical reasons or jewish services or infrequently or short duration when for other reasons) because: Homebound Reason: Leaving home requires considerable and taxing effort due to condition Attestation: My signature below is to certify that this patient is under my care and that I, or nurse practitioner, or a physician's cardiovascular physician assistant working with me, has a face-to -face encounter with this patient.
[2016-05-14] MEDS: Vitamin B Complex/Vit C/Vit E 1 EACH TABLET PO SCH (09:53)
[2016-05-14] MEDS: Amoxicillin/Clavulanate 500 MG TABLET PO SCH (09:53)
[2016-05-14] MEDS: Multivit/Ca/Min/Fe/FA 1 TAB TABLET PO SCH (09:53)
[2016-05-14] MEDS: Cyanocobalamin (B-12) 1,000 MCG TABLET PO SCH (09:53)
[2016-05-14] MEDS: Furosemide 40 MG TABLET PO SCH (09:53)
[2016-05-14] MEDS: Aspirin Enteric Coated 81 MG Tablet PO SCH (09:54)
[2016-05-14] MEDS: Ascorbic Acid 500 MG TABLET PO SCH (09:54)
[2016-05-14] MEDS: Cholecalciferol (D-3) 1,000 UNIT TABLET PO SCH (09:54)
[2016-05-14] MEDS: Budesonide/Formoterol 80/4.5 MDI IH SCH (11:22)
--- NOTE | 2016-05-14 14:24 | Electrocardiograph Report ---
[facility] Test Date: 2016-05-13 Pat Name: RIVAS amato Department: 112 Room: 2A26 Gender: F Mental Retardation Nurse: : [id number] Requested By: Felicity Hdz Order Number: [id number] Reading MD: Solo Stuart MD Measurements Intervals [place] Rate: 76 P: 75 [place]: 192 QRS: -17 QRSD: 84 T: 81 QT: 381 QTc: 412 Interpretive Statements SINUS RHYTHM WITH OCCASIONAL SUPRAVENTRICULAR PREMATURE COMPLEXES LEFT VENTRICULAR HYPERTROPHY AND ST-T CHANGE Electronically Signed On 05-14-16 14:23:10 EST by Solo Stuart MD
== END 2016-05-14 11:11 | disposition home health service (06) | DRG 202 ==
LOC: 2ANU 13:10 → EMEROO 13:10 → SUATTDRO 15:36 → 2ANU 16:19
PROVIDERS: ADMIT Internal Medicine; ATTEND Internal Medicine